=== PATIENT | male | born 1945 | race Caucasian/White ===

== ENCOUNTER → 2017-04-12 08:50 | Outpatient (CLI) | payer SELFPAY ==
[2017-04-12 10:36] LABS: AST(SGOT) 19 U/L (15-37); Alanine Aminotransfer ALT/SGPT 27 U/L (16-61); Albumin, Serum 3.7 g/dL (3.2-5.0); Alkaline Phosphatase 44 U/L (45-117); Bilirubin, Direct 0.36 mg/dL (0.00-0.30); Cholesterol 123 mg/dL (200); Globulin 3.1 g/dL (2.2-4.2); High Density Lipoprotein 35 mg/dL; Protein, Total 6.8 g/dL (6.4-8.2); Triglycerides 134 mg/dL; Very Low Density Lipoprotein 27 mg/dL (5-40)
[2017-04-12 10:41] LABS: PSA,Total - Annual Screen < 0.01 ng/mL (0.00-4.00)
== END ==
PROVIDERS: Family Provider Family Medicine; PCP Family Medicine; Visit Provider Internal Medicine Cardiovascular Disease
DX: Z12.5 Encounter for screening for malignant neoplasm of prostate (principal); E78.5 Hyperlipidemia, unspecified
CPT/HCPCS: 36415; 80061; 80076; 84153; G0103

== ENCOUNTER → 2017-05-16 19:08 | Outpatient (CLI) | payer SELFPAY ==
--- NOTE | 2017-05-16 | COLBX_PTH ---
PATIENT: RONEY COTTON LOC: [facility] U#:[id number] AGE/SX: 79/M ROOM: RE05/16/[address]: Dr. Brandon Parsons MD : 1945 BED: DIS: SPEC #: [id number] RECD: 05/16/17 15:32 STATUS: SUSI PHILLIPSAdam #: [id number] JEFF: 05/16/17 00:[address]: Brandon Parsons DEPT: SURGICAL PATHOLOGY RECD BY: Germain Bess ENTERED: 05/17/17 10:42 SP TYPE: COLON BX OTHR DR: Dr. Maria Eugenia Rachel MD [facility] Tissues: A - Ascending colon B - COLON BIOPSY Procedures: Surgery Specimen Level IV HEADER OPERATION: Colonoscopy with polypectomy PRE-OP DIAGNOSIS: History of polyps TISSUE SUBMITTED: A. Proximal ascending colon polyp, rule out adenoma, B. Hepatic flexure polyp, rule out adenoma MICROSCOPIC DIAGNOSIS A. Proximal ascending colon polyp, biopsy: Fragments of tubular adenoma. B. Colonic polyp at hepatic flexure, biopsy: Rare benign glandular cells. Fecal debris. AM:eris 05/18/17 COMMENT B. The specimen primarily consists of fecal material. Clinical correlation is suggested. MICROSCOPIC DESCRIPTION Slides are reviewed. GROSS DESCRIPTION A - Received in fixative is one container labeled with the patient's name and designated proximal ascending colon polyp. The specimen consists of multiple irregular fragments of light pugh soft tissue that in aggregate measure 1.5 x 0.3 x 0.1 cm. The specimen is totally submitted in one cassette. B - Received in fixative is one container labeled with the patient's name and designated hepatic flexure polyp. The specimen consists of multiple irregular fragments of light pugh soft tissue mixed with fecal material that in aggregate measure 2.5 x 0.2 x 0.1 cm. The specimen predominantly consists of fecal material. The specimen is totally submitted in one cassette. / SJ:eris 05/17/17 TC:5 CPT: 52665 x2
== END ==
PROVIDERS: Family Provider Family Medicine; PCP Family Medicine; Visit Provider Internal Medicine Gastroenterology
DX: Z86.010 Personal history of colon polyps (principal)
CPT/HCPCS: 88305

== ENCOUNTER → 2018-01-02 07:47 | Outpatient (CLI) | payer SELFPAY ==
--- NOTE | 2018-01-02 07:52 | CDU_ITS ---
Reason For Study: CAROTID ARTERY STENOSIS Rt. Velocities/BP Lt. Velocities/BP Prox CCA 116/21 cm/sec. Prox CCA 154/35 cm/sec. Mid CCA 128/31 cm/sec. Mid CCA 135/27 cm/sec. Dist CCA 109/28 cm/sec. Dist CCA 109/28 cm/sec. Prox ICA 49/0 cm/sec. Prox ICA 128/34 cm/sec. Mid ICA 130/39 cm/sec. Mid ICA 108/41 cm/sec. Dist ICA 90/31 cm/sec. Dist ICA 154/53 cm/sec. Rt. ICA/CCA = 1.02. Lt. ICA/CCA = 1.14. Prox ECA 141/17 cm/sec. Prox ECA 128/15 cm/sec. Rt. Vert. 46/17 cm/sec. Lt. Vert. 44/14 cm/sec. Right Extracranial There is homogeneous, smooth atherosclerotic plaque noted in the right common carotid artery. There is homogeneous, smooth atherosclerotic plaque noted in the right internal carotid artery. There is heterogeneous, smooth atherosclerotic plaque noted in the right external carotid artery. Antegrade flow is noted in the right vertebral artery. Left Extracranial There is homogeneous, smooth atherosclerotic plaque noted in the left common carotid artery. There is heterogeneous, irregular atherosclerotic plaque noted in the left internal carotid artery. There is homogeneous, smooth atherosclerotic plaque noted in the left external carotid artery. Antegrade flow is noted in the left vertebral artery. Procedure Carotid Duplex [id number]. Exam performed in department. Interpretation Summary Moderate (50-69%) stenosis right extracranial internal carotid. Moderate (50-69%) stenosis left extracranial internal carotid. Flow within the vertebral arteries is antegrade bilaterally. Ordering Physician: Kimani Montes Referring Physician: SATISH DIAZ Performed By: Susie Littlejohn, CLARY, RVT
== END ==
PROVIDERS: Family Provider Family Medicine; PCP Family Medicine; Referring Provider Surgery Vascular Surgery; Visit Provider Surgery Vascular Surgery
DX: I65.21 Occlusion and stenosis of right carotid artery (principal); I82.402 Acute embolism and thrombosis of unspecified deep veins of left lower extremity; E78.00 Pure hypercholesterolemia, unspecified; K92.2 Gastrointestinal hemorrhage, unspecified; R09.89 Other specified symptoms and signs involving the circulatory and respiratory systems
CPT/HCPCS: 93880

== ENCOUNTER → 2018-04-04 09:14 | Outpatient (CLI) | payer SELFPAY ==
[2018-04-04 10:26] LABS: AST(SGOT) 18 U/L (15-37); Alanine Aminotransfer ALT/SGPT 27 U/L (16-61); Albumin, Serum 3.7 g/dL (3.2-5.0); Alkaline Phosphatase 50 U/L (45-117); Bilirubin, Direct 0.29 mg/dL (0.00-0.30); Cholesterol 152 mg/dL (200); Globulin 3.3 g/dL (2.2-4.2); High Density Lipoprotein 34 mg/dL; Triglycerides 159 mg/dL; Very Low Density Lipoprotein 32 mg/dL (5-40)
== END ==
PROVIDERS: Family Provider Family Medicine; PCP Family Medicine; Referring Provider Internal Medicine Cardiovascular Disease; Visit Provider Internal Medicine Cardiovascular Disease
DX: E78.5 Hyperlipidemia, unspecified (principal); Z79.899 Other long term (current) drug therapy
CPT/HCPCS: 36415; 80061; 80076

== ENCOUNTER → 2018-11-29 11:43 | Outpatient (CLI) | payer SELFPAY ==
[2018-11-06 09:48] VITALS: BMI 29.9
[2018-11-29 14:19] LABS: AST(SGOT) 14 U/L (15-37); Alanine Aminotransfer ALT/SGPT 26 U/L (16-61); Albumin, Serum 3.8 g/dL (3.2-5.0); Alkaline Phosphatase 53 U/L (45-117); Bilirubin, Direct 0.37 mg/dL (0.00-0.30); Cholesterol 158 mg/dL (200); Globulin 3.1 g/dL (2.2-4.2); High Density Lipoprotein 36 mg/dL; Protein, Total 6.9 g/dL (6.4-8.2); Triglycerides 140 mg/dL; Very Low Density Lipoprotein 28 mg/dL (5-40)
== END ==
PROVIDERS: Family Provider Family Medicine; PCP Family Medicine; Referring Provider Family Medicine; Visit Provider Physician Assistant Medical
DX: E78.5 Hyperlipidemia, unspecified (principal)
CPT/HCPCS: 36415; 80061; 80076

== ENCOUNTER → 2019-06-26 10:54 | Outpatient (CLI) | payer SELFPAY ==
[2019-06-12 15:43] VITALS: BMI 29.5
[2019-06-26 12:33] LABS: Absolute Lymphocyte Count 1.48 X10^3/uL (0.83-4.51); Absolute Neutrophil Count 3.8 X10^3/uL (2.0-7.7); Basophil# 0.03 X10^3/uL; Basophil% 0.5 % (0-1); Eosinophil# 0.21 X10^3/uL; Eosinophils% 3.5 % (0-5); Hematocrit 48.7 % (40-54); Hemoglobin 15.8 g/dL (13.0-16.5); Lymphocyte # 1.48 X10^3/ul (4.0); Lymphocyte % 24.3 % (19-41); Mean Corp Hgb Conc 32.4 g/dL (32-36); Mean Corpuscular Hgb 31.5 pg (27.0-32.0); Mean Platelet Vol. 9.5 fl (6.2-12.0); Monocyte# 0.54 X10^3/uL; Monocyte% 8.9 % (0-10); NRBC Flagged by Analyzer 0.3 % (0-5); Neutrophil % 62.5 % (47-70); Platelet Count 127 K/mm3 (150-450); RBC Distribution Width SD 50.1 fl (35.1-43.9); Red Blood Count 5.02 M/mm3 (4.6-6.2); White Blood Count 6.1 K/mm3 (4.4-11.0)
[2019-06-26 13:11] LABS: Ferritin 85 ng/mL (26-388); Iron 67 ug/dL (65-175)
[2019-06-26 13:18] LABS: AST(SGOT) 14 U/L (15-37); Alanine Aminotransfer ALT/SGPT 23 U/L (16-61); Albumin, Serum 3.7 g/dL (3.2-5.0); Alkaline Phosphatase 54 U/L (45-117); Bilirubin, Direct 0.32 mg/dL (0.00-0.30); Cholesterol 117 mg/dL (200); Globulin 2.8 g/dL (2.2-4.2); High Density Lipoprotein 36 mg/dL; Protein, Total 6.5 g/dL (6.4-8.2); Triglycerides 129 mg/dL; Very Low Density Lipoprotein 26 mg/dL (5-40)
== END ==
PROVIDERS: Internal Medicine Cardiovascular Disease; PCP Family Medicine; Visit Provider Family Medicine
DX: D75.0 Familial erythrocytosis (principal); E78.00 Pure hypercholesterolemia, unspecified
CPT/HCPCS: 36415; 80061; 80076; 82728; 83540; 85025

== ENCOUNTER → 2020-03-11 08:48 | Outpatient (CLI) | payer SELFPAY ==
[2019-06-12 15:43] VITALS: BMI 29.5
--- NOTE | 2020-03-11 08:56 | CDU_ITS ---
Reason For Study: Carotid stenosis Rt. Velocities/BP Lt. Velocities/BP Prox CCA 111.2/17.3 cm/sec. Prox CCA 124.7/22.5 cm/sec. Mid CCA 141.2/24.3 cm/sec. Mid CCA 133.9/17 cm/sec. Dist CCA 130.2/18.8 cm/sec. Dist CCA 106.5/18.8 cm/sec. Prox ICA 80.9/15.2 cm/sec. Prox ICA 128.4/24.3 cm/sec. Mid ICA 128.4/29.8 cm/sec. Mid ICA 86.4/24.3 cm/sec. Dist ICA 119.3/33.4 cm/sec. Dist ICA 113.8/26.1 cm/sec. Rt. ICA/CCA = 0.99. Lt. ICA/CCA = 1.03. Prox ECA 126.6/4.2 cm/sec. Prox ECA 141.2/7.9 cm/sec. Rt. Vert. 59.7/16.8 cm/sec. Lt. Vert. 39/8.8 cm/sec. Right Extracranial There is homogeneous, smooth atherosclerotic plaque noted in the right common carotid artery. There is heterogeneous, irregular atherosclerotic plaque noted in the right internal carotid artery. There is homogeneous, smooth atherosclerotic plaque noted in the right external carotid artery. Antegrade flow is noted in the right vertebral artery. Left Extracranial There is homogeneous, smooth atherosclerotic plaque noted in the left common carotid artery. There is heterogeneous, irregular atherosclerotic plaque noted in the left internal carotid artery. There is homogeneous, smooth atherosclerotic plaque noted in the left external carotid artery. Antegrade flow is noted in the left vertebral artery. Procedure Carotid Duplex 49742. This is a Carotid Duplex examination using B-mode, color flow and specral Doppler. Exam performed in department. Interpretation Summary Moderate (50-69%) stenosis right extracranial internal carotid. Mild (<50%) stenosis left extracranial internal carotid. Flow within the vertebral arteries is antegrade bilaterally. Ordering Physician: Kimani Montes Referring Physician: Maria Eugenia Rachel M.D. Performed By: Hollie Trinidad RVT
== END ==
PROVIDERS: PCP Family Medicine; Referring Provider Surgery Vascular Surgery; Visit Provider Surgery Vascular Surgery
DX: I65.23 Occlusion and stenosis of bilateral carotid arteries (principal)
CPT/HCPCS: 93880

== ENCOUNTER → 2020-10-24 10:32 | Outpatient (CLI) | payer SELFPAY ==
[2020-10-24 11:55] LABS: AST(SGOT) 16 U/L (15-37); Alanine Aminotransfer ALT/SGPT 29 U/L (16-61); Albumin, Serum 3.7 g/dL (3.2-5.0); Alkaline Phosphatase 47 U/L (45-117); Bilirubin, Direct 0.35 mg/dL (0.00-0.30); Cholesterol 122 mg/dL (200); Globulin 3.4 g/dL (2.2-4.2); High Density Lipoprotein 38 mg/dL; Protein, Total 7.1 g/dL (6.4-8.2); Triglycerides 120 mg/dL; Very Low Density Lipoprotein 24 mg/dL (5-40)
== END ==
PROVIDERS: PCP Family Medicine; Referring Provider Internal Medicine Cardiovascular Disease; Visit Provider Internal Medicine Cardiovascular Disease
DX: E78.00 Pure hypercholesterolemia, unspecified (principal)
CPT/HCPCS: 36415; 80061; 80076

== ENCOUNTER → 2021-02-06 09:10 | Outpatient (CLI) | payer SELFPAY ==
--- NOTE | 2021-02-06 09:17 | RAD_ITS ---
EXAM: XR RIGHT RIBS, 2 VIEWS CLINICAL INDICATION: RIB PAIN, RIGHT SIDE TECHNIQUE: Frontal and oblique views of the right ribs. This report was created using EchoFirst report generation technology. COMPARISON: None. FINDINGS: LUNGS AND PLEURAL SPACES: See below. BONES/JOINTS: There is an acute fracture of the right lateral 8th rib. There is no pneumothorax. No sclerotic or destructive changes observed. SOFT TISSUES: Unremarkable. No soft tissue swelling or gas. RAD/Ribs Unil 2V No CXR IMPRESSION: There is an acute fracture of the right lateral 8th rib. There is no pneumothorax. Electronically Signed: Azar Pablo MD at 16:51 EST , Service support ,
--- NOTE | 2021-02-06 09:20 | RAD_ITS ---
STUDY: XR Chest 2 Views 02/06/2021 9:21 AM REASON FOR EXAM: Male, 75 years old. CHEST PAIN RIB PAIN ON RIGHT SIDE COMPARISON: None TECHNIQUE: XR Chest 2 Views FINDINGS: There is no demonstrated pleural abnormality. Normal heart size. Normal mediastinum. Normal cecelia. Prominent appearing increased interstitial lung markings. Normal visualized pulmonary arteries. There is atherosclerotic calcification of the aortic arch with tortuosity. There are diffuse degenerative changes of the visualized thoracic spine. There is degenerative osteoarthritis of the bilateral shoulders. There is an acute fracture of the right lateral 8th rib. There is no demonstrated abnormality of the visualized soft tissue structures of the upper abdomen. RAD/Chest PA and Lateral IMPRESSION: There is an acute fracture of the right lateral 8th rib. Electronically Signed: Azar Pablo MD at 16:51 EST , Service support ,
== END ==
LOC: MTLAB 09:10 → MTRAD 09:11
PROVIDERS: PCP Family Medicine; Referring Provider Family Medicine; Visit Provider Family Medicine
DX: R07.81 Pleurodynia (principal)
CPT/HCPCS: 71046; 71100

== ENCOUNTER → 2021-10-06 | Outpatient (CLI) | payer SELFPAY ==
[2021-10-06 12:48] LABS: Erythrocyte Sedimentation Rate 7 mm/hr (0-20)
[2021-10-06 12:50] LABS: Absolute Lymphocyte Count 1.48 X10^3/uL (0.83-4.51); Absolute Neutrophil Count 5.4 X10^3/uL (2.0-7.7); Basophil# 0.04 X10^3/uL; Basophil% 0.5 % (0-1); Eosinophil# 0.28 X10^3/uL; Eosinophils% 3.5 % (0-5); Hematocrit 48.2 % (40-54); Hemoglobin 16.2 g/dL (13.0-16.5); Lymphocyte # 1.48 X10^3/ul (0.83-4.51); Lymphocyte % 18.7 % (19-41); Mean Corp Hgb Conc 33.6 g/dL (32-36); Mean Corpuscular Hgb 32.8 pg (27.0-32.0); Mean Corpuscular Volume 97.6 fL (80-94); Mean Platelet Vol. 9.5 fl (6.2-12.0); Monocyte# 0.67 X10^3/uL; Monocyte% 8.5 % (0-10); NRBC Flagged by Analyzer 0 % (0-5); Neutrophil % 68.3 % (47-70); Platelet Count 159 K/mm3 (150-450); RBC Distribution Width CV 13.8 % (11.6-14.6); Red Blood Count 4.94 M/mm3 (4.6-6.2); White Blood Count 7.9 K/mm3 (4.4-11.0)
[2021-10-06 13:05] LABS: AST(SGOT) 15 U/L (15-37); Alanine Aminotransfer ALT/SGPT 25 U/L (16-61); Albumin, Serum 3.5 g/dL (3.2-5.0); Alkaline Phosphatase 52 U/L (45-117); Anion Gap 6 (5-15); BUN 32 mg/dL (7-18); BUN/Creat Ratio 17.1 RATIO (10-20); CRP < 2.90 mg/L (0.0-3.0); Calcium,Total 8.8 mg/dL (8.5-10.1); Chloride 108 mmol/L (98-107); Creatinine, Serum 1.87 mg/dL (0.70-1.30); EST Glomerular Filtration Rate 37 mL/min (>60); Est Glom Filt Rate - Afr Amer 45 mL/min (>60); Globulin 3.5 g/dL (2.2-4.2); Glucose 84 mg/dL (74-106); Potassium 4.9 mmol/L (3.5-5.1); Sodium Level 139 mmol/L (136-145); Uric Acid 7.8 mg/dL (3.5-7.2)
== END | disposition home or self-care (01) ==
PROVIDERS: PCP Family Medicine; Referring Provider Podiatrist; Visit Provider Podiatrist
DX: L03.90 Cellulitis, unspecified (principal); M10.9 Gout, unspecified
CPT/HCPCS: 36415; 80053; 84550; 85025; 85652; 86140

== ENCOUNTER → 2022-10-22 | Outpatient (CLI) | payer SELFPAY ==
[2022-10-22 15:37] LABS: AST(SGOT) 17 U/L (15-37); Alanine Aminotransfer ALT/SGPT 25 U/L (16-61); CPK Total, Creatine Kinase 178 U/L (39-308); Cholesterol 117 mg/dL (200); High Density Lipoprotein 39 mg/dL; Triglycerides 95 mg/dL; Very Low Density Lipoprotein 19 mg/dL (5-40)
== END | disposition home or self-care (01) ==
LOC: MTLAB 11:37
PROVIDERS: PCP Family Medicine; Referring Provider Internal Medicine Cardiovascular Disease; Visit Provider Internal Medicine Cardiovascular Disease
DX: R42 Dizziness and giddiness (principal); I77.9 Disorder of arteries and arterioles, unspecified; E78.5 Hyperlipidemia, unspecified; I25.10 Atherosclerotic heart disease of native coronary artery without angina pectoris
CPT/HCPCS: 36415; 80061; 82550; 84450; 84460

== ENCOUNTER 2022-10-30 11:01 | Emergency (ER) | payer OTHER, SELFPAY ==
[2022-10-30] VITALS (46 sets, daily range): BP systolic 74–141; BP diastolic 51–76; PULSE 67–89; RESP 13–25; TEMP 35.5; O2SAT 95–100; BMI 30.7
--- NOTE | 2022-10-30 12:09 | EX.ED.DYSGE1 ---
HPI History of Present Illness Chief Complaint: GI Bleed Informant: patient and spouse/S.O. Narrative Narrative: 76-year-old male presenting to the emergency department with lower GI bleeding. Patient states he has a history of the same several years ago underwent what sounds like embolization in [place]. He underwent coronary artery stenting in 2016 and is maintained on Plavix and aspirin. He was seen Dr. العراقي locally for cardiology. He states that yesterday he felt fine. Around 0930 this morning he had an episode of bright red blood per rectum. This happened again at approximately 1100 hrs. He denies any syncope. No chest pain shortness of breath. No abdominal or rectal pain. He has not been experiencing any significant cramping. 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 Osteoarthritis of right knee Patellofemoral syndrome, right Peripheral vascular disease Presence of stent in coronary artery (~10/01/15) Pure hypercholesterolemia Home Medications aspirin 81 mg tablet,delayed release 81 mg PO DAILY 11/07/15 [History Last Taken Unknown] nitroglycerin 0.4 mg sublingual tablet 0.4 mg sublingual Q5M PRN Chest Pain 11/07/15 [History Last Taken Unknown] lisinopril 10 mg tablet 10 mg PO QDAY #90 tabs 08/16/22 [Rx Last Taken Unknown] metoprolol succinate 100 mg tablet,extended release 24 hr 100 mg PO QDAY #90 tabs 08/16/22 [Rx Last Taken Unknown] pravastatin 80 mg tablet 80 mg PO QHS #90 tabs 08/16/22 [Rx Last Taken Unknown] clopidogrel 75 mg tablet 75 mg PO DAILY 10/12/22 [History Last Taken Unknown] Allergy/AdvReac Type Severity Reaction Status Date / Time No Known Allergies Allergy Verified 10/30/22 11:02 Family History Father CAD (coronary artery disease) Mother CAD (coronary artery disease) Hx CHF Sister Hypertension High cholesterol Surgical History History of colonoscopy History of surgery of liver Hx of prostatectomy Presence of coronary angioplasty implant and graft (~10/01/15) Social History Smoking Status: Never smoker alcohol intake: never substance use type: does not use caffeine: Yes Type: coffee what type of physical activity do you participate in: none seatbelt use: always do you feel safe at home: Yes ROS ROS ED Constitutional Constitutional ED: Denies chills or weight loss Eyes Eyes: Denies change in vision or diplopia ENT ENT ED: Denies ear pain, rhinorrhea or sore throat Cardiovascular Cardiovascular: Denies chest pain, orthopnea, palpitations or racing heartbeat Respiratory/Chest Respiratory/Chest: Denies cough, dyspnea or orthopnea Gastrointestinal Gastrointestinal: Denies abdominal pain, diarrhea, nausea or vomiting Genitourinary Genitourinary ED: Reports other Details: Bright red blood per rectum x2 today ; Denies dysuria, hematuria or urinary frequency Musculoskeletal Musculoskeletal: Denies arthralgias or myalgias Integumentary Denies abscess or rash Neurologic Neurologic: Denies headache(s) or weakness Psychiatric Psychiatric: Denies anxiety, depression, suicidal ideation or suicidal thoughts Endocrine Endocrinology: Denies polydipsia, polyphagia or polyuria Allergic/Immunologic Allergic/Immunologic ED: Denies mouth swelling, tongue swelling or urticaria EXAM Physical Exam Const Vital Signs: 10/30/22 11:02 10/30/22 12:58 10/30/22 17:00 Temperature 95.9 F L Temperature Source Temporal Pulse Rate 89 88 Pulse Rate [Lying] 71 Pulse Rate [Sitting (for 1 minute prior to obtaining)] 74 Pulse Rate [Standing (for 1 minute prior to obtaining)] 76 Respiratory Rate 18 16 Blood Pressure 121/66 H 104/55 L Blood Pressure [Lying] 125/68 H Blood Pressure [Sitting (for 1 minute prior to obtaining)] 141/74 H Blood Pressure [Standing (for 1 minute prior to obtaining)] 134/71 H Blood Pressure Mean 84 71 Blood Pressure Mean [Lying] 87 Blood Pressure Mean [Sitting (for 1 minute prior to obtaining)] 96 Blood Pressure Mean [Standing (for 1 minute prior to obtaining)] 92 Pulse Ox 98 100 Oxygen Delivery Method Room Air Room Air 10/30/22 18:15 10/30/22 20:00 10/30/22 18:00 Temperature Temperature Source Pulse Rate 71 70 Pulse Rate [Lying] Pulse Rate [Sitting (for 1 minute prior to obtaining)] Pulse Rate [Standing (for 1 minute prior to obtaining)] Respiratory Rate 15 16 Blood Pressure 139/71 H 91/60 111/76 Blood Pressure [Lying] Blood Pressure [Sitting (for 1 minute prior to obtaining)] Blood Pressure [Standing (for 1 minute prior to obtaining)] Blood Pressure Mean 93 70 86 Blood Pressure Mean [Lying] Blood Pressure Mean [Sitting (for 1 minute prior to obtaining)] Blood Pressure Mean [Standing (for 1 minute prior to obtaining)] Pulse Ox 100 95 Oxygen Delivery Method Room Air Room Air 10/30/22 18:15 10/30/22 18:41 10/30/22 18:45 Temperature Temperature Source Pulse Rate 70 Pulse Rate [Lying] Pulse Rate [Sitting (for 1 minute prior to obtaining)] Pulse Rate [Standing (for 1 minute prior to obtaining)] Respiratory Rate 20 H Blood Pressure 139/71 H 117/67 122/70 H Blood Pressure [Lying] Blood Pressure [Sitting (for 1 minute prior to obtaining)] Blood Pressure [Standing (for 1 minute prior to obtaining)] Blood Pressure Mean 90 82 87 Blood Pressure Mean [Lying] Blood Pressure Mean [Sitting (for 1 minute prior to obtaining)] Blood Pressure Mean [Standing (for 1 minute prior to obtaining)] Pulse Ox 98 Oxygen Delivery Method 10/30/22 18:50 10/30/22 19:00 10/30/22 19:10 Temperature Temperature Source Pulse Rate 71 68 68 Pulse Rate [Lying] Pulse Rate [Sitting (for 1 minute prior to obtaining)] Pulse Rate [Standing (for 1 minute prior to obtaining)] Respiratory Rate 15 16 20 H Blood Pressure 108/67 Blood Pressure [Lying] Blood Pressure [Sitting (for 1 minute prior to obtaining)] Blood Pressure [Standing (for 1 minute prior to obtaining)] Blood Pressure Mean 81 Blood Pressure Mean [Lying] Blood Pressure Mean [Sitting (for 1 minute prior to obtaining)] Blood Pressure Mean [Standing (for 1 minute prior to obtaining)] Pulse Ox 97 96 96 Oxygen Delivery Method 10/30/22 19:15 10/30/22 19:20 10/30/22 19:30 Temperature Temperature Source Pulse Rate 67 70 72 Pulse Rate [Lying] Pulse Rate [Sitting (for 1 minute prior to obtaining)] Pulse Rate [Standing (for 1 minute prior to obtaining)] Respiratory Rate 25 H 23 H 14 Blood Pressure 121/66 H 112/65 Blood Pressure [Lying] Blood Pressure [Sitting (for 1 minute prior to obtaining)] Blood Pressure [Standing (for 1 minute prior to obtaining)] Blood Pressure Mean 82 79 Blood Pressure Mean [Lying] Blood Pressure Mean [Sitting (for 1 minute prior to obtaining)] Blood Pressure Mean [Standing (for 1 minute prior to obtaining)] Pulse Ox 98 98 97 Oxygen Delivery Method 10/30/22 19:40 10/30/22 19:46 10/30/22 19:50 Temperature Temperature Source Pulse Rate 73 72 Pulse Rate [Lying] Pulse Rate [Sitting (for 1 minute prior to obtaining)] Pulse Rate [Standing (for 1 minute prior to obtaining)] Respiratory Rate 17 23 H Blood Pressure 124/66 H Blood Pressure [Lying] Blood Pressure [Sitting (for 1 minute prior to obtaining)] Blood Pressure [Standing (for 1 minute prior to obtaining)] Blood Pressure Mean 83 Blood Pressure Mean [Lying] Blood Pressure Mean [Sitting (for 1 minute prior to obtaining)] Blood Pressure Mean [Standing (for 1 minute prior to obtaining)] Pulse Ox 98 98 Oxygen Delivery Method 10/30/22 20:57 10/30/22 21:00 10/30/22 21:10 Temperature Temperature Source Pulse Rate 70 73 71 Pulse Rate [Lying] Pulse Rate [Sitting (for 1 minute prior to obtaining)] Pulse Rate [Standing (for 1 minute prior to obtaining)] Respiratory Rate 20 H 16 16 Blood Pressure 91/60 110/70 Blood Pressure [Lying] Blood Pressure [Sitting (for 1 minute prior to obtaining)] Blood Pressure [Standing (for 1 minute prior to obtaining)] Blood Pressure Mean 71 83 Blood Pressure Mean [Lying] Blood Pressure Mean [Sitting (for 1 minute prior to obtaining)] Blood Pressure Mean [Standing (for 1 minute prior to obtaining)] Pulse Ox 95 96 Oxygen Delivery Method 10/30/22 21:15 10/30/22 21:20 10/30/22 21:30 Temperature Temperature Source Pulse Rate 71 68 71 Pulse Rate [Lying] Pulse Rate [Sitting (for 1 minute prior to obtaining)] Pulse Rate [Standing (for 1 minute prior to obtaining)] Respiratory Rate 19 H 23 H 21 H Blood Pressure 108/61 74/58 L Blood Pressure [Lying] Blood Pressure [Sitting (for 1 minute prior to obtaining)] Blood Pressure [Standing (for 1 minute prior to obtaining)] Blood Pressure Mean 74 65 Blood Pressure Mean [Lying] Blood Pressure Mean [Sitting (for 1 minute prior to obtaining)] Blood Pressure Mean [Standing (for 1 minute prior to obtaining)] Pulse Ox 97 97 100 Oxygen Delivery Method 10/30/22 21:40 10/30/22 21:41 10/30/22 21:45 Temperature Temperature Source Pulse Rate 70 69 68 Pulse Rate [Lying] Pulse Rate [Sitting (for 1 minute prior to obtaining)] Pulse Rate [Standing (for 1 minute prior to obtaining)] Respiratory Rate 19 H 24 H 16 Blood Pressure 93/60 91/56 L Blood Pressure [Lying] Blood Pressure [Sitting (for 1 minute prior to obtaining)] Blood Pressure [Standing (for 1 minute prior to obtaining)] Blood Pressure Mean 70 68 Blood Pressure Mean [Lying] Blood Pressure Mean [Sitting (for 1 minute prior to obtaining)] Blood Pressure Mean [Standing (for 1 minute prior to obtaining)] Pulse Ox 99 98 98 Oxygen Delivery Method 10/30/22 21:50 10/30/22 22:00 10/30/22 22:10 Temperature Temperature Source Pulse Rate 71 68 69 Pulse Rate [Lying] Pulse Rate [Sitting (for 1 minute prior to obtaining)] Pulse Rate [Standing (for 1 minute prior to obtaining)] Respiratory Rate 14 15 13 Blood Pressure 101/59 L Blood Pressure [Lying] Blood Pressure [Sitting (for 1 minute prior to obtaining)] Blood Pressure [Standing (for 1 minute prior to obtaining)] Blood Pressure Mean 72 Blood Pressure Mean [Lying] Blood Pressure Mean [Sitting (for 1 minute prior to obtaining)] Blood Pressure Mean [Standing (for 1 minute prior to obtaining)] Pulse Ox 98 100 100 Oxygen Delivery Method Room Air 10/30/22 22:15 10/30/22 22:19 10/30/22 22:20 Temperature Temperature Source Pulse Rate 68 77 76 Pulse Rate [Lying] Pulse Rate [Sitting (for 1 minute prior to obtaining)] Pulse Rate [Standing (for 1 minute prior to obtaining)] Respiratory Rate 17 25 H 21 H Blood Pressure 81/62 L 91/64 Blood Pressure [Lying] Blood Pressure [Sitting (for 1 minute prior to obtaining)] Blood Pressure [Standing (for 1 minute prior to obtaining)] Blood Pressure Mean 70 73 Blood Pressure Mean [Lying] Blood Pressure Mean [Sitting (for 1 minute prior to obtaining)] Blood Pressure Mean [Standing (for 1 minute prior to obtaining)] Pulse Ox 100 100 Oxygen Delivery Method Room Air Positive well nourished and well developed General Appearance ED: well developed HEENT Reports normocephalic, head/scalp atraumatic and moist mucous membranes Eyes PERRL and EOMs intact bilaterally Neck no lymphadenopathy, supple and no JVD Resp normal respiratory effort and clear to auscultation bilaterally Cardio regular rate, regular rhythm and no murmurs GI normal to inspection, nondistended, normoactive bowel sounds and non-tender Palpation: soft Narrative: There is clotted blood around and in the anus. There is no stool in the rectal vault. Back/Spine no CVA tenderness and normal ROM Extremity normal to inspection General Extremety ED: Negative for edema General Extremity: Negative for edema Neuro oriented x3 and CN's II-XII intact bilaterally Sensorium / Orientation: alert Motor Exam: strength 5/5 throughout Psych mental status grossly normal Mood & Affect: Negative for depressed or tearful Skin no rashes or lesions noted and no wounds MDM MDM MDM Narrative Medical decision making narrative: Patient is initial hemoglobin is 16.0. BUN 27 creatinine 1.86. Lactic acid is normal. Patient had 2 bloody bowel movements here seem to have more clots. Orthostatic lovelace he is asymptomatic. I repeated his hemoglobin level about 4 hours after his arrival and his hemoglobin 14.6. I spoke with gastroenterology and we will plan on admitting. I spoke with the hospitalist who evaluated the patient. Hospitalist ordered a CTA that showed active bleeding at the hepatic flexure. She then spoke with family and they are requesting transfer to tertiary care facility where he was at before. I once again spoke with gastroenterology and then because he is still in the emergency department I spoke with the transfer line and we are currently awaiting acceptance. He remains hemodynamically stable. I do not believe he needs a transfusion at the current moment. Nursing informed me that they obtained a hypotensive blood pressure reading. They readjusted the cuff and did a manual and it was normal tensive around 110 and 108 systolic. He is not tachycardic and he is mentating. We rechecked the hemoglobin again is 13.3. I have personally reviewed his blood pressure readings. Nursing has documented several readings where he appears to be hypotensive but when I go back and I recycle the cough we are normal tensive. I do not believe he is in a state of shock at the current time or in need of a transfusion. He is receiving fluids. We will continue to monitor. As of 2230 hours the care of the patient will be transferred to the night physician. We are still awaiting bed assignment at [facility] Lab Data Attestation: I reviewed the patient's lab results. Labs: Laboratory Results - last 24 hr 10/30/22 10/30/22 10/30/22 11:45 16:10 21:19 WBC 6.5 RBC 4.97 Hgb 16.0 14.6 13.3 Hct 48.5 44.2 40.7 MCV 97.6 H MCH 32.2 H MCHC 33.0 RDW Std Deviation 49.0 H RDW Coeff of Elly 13.6 Plt Count 130 L MPV 9.0 Immature Gran % (Auto) 0.300 Neut % (Auto) 62.5 Lymph % (Auto) 24.9 Duchesne % (Auto) 6.3 Eos % (Auto) 5.4 H Baso % (Auto) 0.6 Absolute Neuts (auto) 4.0 Absolute Lymphs (auto) 1.61 Nucleated RBC % 0 PT 13.7 INR 1.0 APTT 29.7 Sodium 141 Potassium 4.4 Chloride 112 H Carbon Dioxide 24.0 Anion Gap 5 BUN 27 H Creatinine 1.86 H Estim Creat Clear Calc 35.42 Est GFR (MDRD) Af Amer 45 L Est GFR (MDRD) Non-Af 38 L BUN/Creatinine Ratio 14.5 Glucose 143 H Lactic Acid 1.5 Calcium 8.6 Radiography Diagnostic Testing: Clinical Impression(s) from Imaging Studies Abdomen/Pelvis CTA 10/30/22 18:18 IMPRESSION: Focal contrast in the dependent portion of the diverticulum and the hepatic flexure suggesting active diverticular bleed. Electronically Signed: Ramírez Cervantes MD ([place]) at 18:56 EDT , Discharge Plan Triage Chief Complaint: GI Bleed ED Provider: Emmett Sanchez Dx/Rx/DC Orders Clinical Impression: Gastrointestinal bleeding, lower Prescriptions: No Action clopidogrel 75 mg tablet 75 mg PO DAILY aspirin 81 MG tablet,delayed release (DR/EC) 81 mg PO DAILY nitroglycerin 0.4 MG tablet 0.4 mg SUBLINGUAL Q5M PRN (Reason: Chest Pain) pravastatin 80 mg tablet 80 mg PO QHS Qty: 90 3RF lisinopril 10 mg tablet 10 mg PO QDAY Qty: 90 3RF metoprolol succinate 100 mg tablet extended release 24 hr 100 mg PO QDAY Qty: 90 3RF Primary Care Provider: Maria Eugenia Rachel Referrals: Maria Eugenia Rachel MD [Primary Care Provider] - Disposition Disposition: Acute Care Hospital Discharge Location: [facility]
[2022-10-30 12:12] LABS: Absolute Lymphocyte Count 1.61 X10^3/uL (0.83-4.51); Basophil# 0.04 X10^3/uL; Basophil% 0.6 % (0-1); Eosinophil# 0.35 X10^3/uL; Eosinophils% 5.4 % (0-5); Hematocrit 48.5 % (40-54); Lymphocyte # 1.61 X10^3/ul (0.83-4.51); Lymphocyte % 24.9 % (19-41); Mean Corpuscular Hgb 32.2 pg (27.0-32.0); Mean Corpuscular Volume 97.6 fL (80-94); Monocyte# 0.41 X10^3/uL; Monocyte% 6.3 % (0-10); NRBC Flagged by Analyzer 0 % (0-5); Neutrophil # 4.04 X10^3/uL (2.7-7.7); Neutrophil % 62.5 % (47-70); Platelet Count 130 K/mm3 (150-450); RBC Distribution Width CV 13.6 % (11.6-14.6); Red Blood Count 4.97 M/mm3 (4.6-6.2); White Blood Count 6.5 K/mm3 (4.4-11.0)
[2022-10-30 12:23] LABS: Prothrombin Time (Protime)PT. 13.7 SECONDS (11.7-14.9)
[2022-10-30 12:24] LABS: Partial Thromboplast Time 29.7 Seconds (24.1-36.2)
[2022-10-30 12:26] LABS: Anion Gap 5 (5-15); BUN 27 mg/dL (7-18); BUN/Creat Ratio 14.5 RATIO (10-20); Calcium,Total 8.6 mg/dL (8.5-10.1); Chloride 112 mmol/L (98-107); Creatinine, Serum 1.86 mg/dL (0.70-1.30); EST Glomerular Filtration Rate 38 mL/min (>60); Est Glom Filt Rate - Afr Amer 45 mL/min (>60); Estimated Creatinine Clearance 35.42 ml/min; Glucose 143 mg/dL (74-106); Potassium 4.4 mmol/L (3.5-5.1); Sodium Level 141 mmol/L (136-145)
[2022-10-30 12:38] LABS: Lactic Acid 1.5 mmol/L (0.4-1.9)
[2022-10-30 16:16] LABS: Hematocrit 44.2 % (40-54); Hemoglobin 14.6 g/dL (13.0-16.5)
--- NOTE | 2022-10-30 17:51 | HP.PCM_ITS ---
[facility] - General General Date of Service: 10/30/22 Chief Complaint: rectal bleeding [facility] Narrative RONEY COTTON, is a 76 M with a PMH as outlined who presents via the ED on 10/30/2022 with a complaint of rectal bleeding. Rectal bleeding started on the morning of admission, at around 9:30am. He denied any abdominal pain, lightheadedness, dizziness, nausea, vomiting or any other symptoms. Rectal bleeding occured again a couple of hours later. He said he had similar symptoms in ~ 2014 after he had cardiac cath with stents. HE was transferred to [facility] then and had embolization of a rectal artery. He is on aspirin and plavix. He had no other complaints. Vitals in the ED were BP of 95.9F, BP of 125/68, RR of 18 and he was saturating at 98% on room air. CBC showed Hb of 14.6. wbc of 6.5 and platelets of 130. CHemistry showed sodium of 141, potassium of 4.4, Cr of 1.86. He is being admitted to be managed for rectal bleed. 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, lower extremity, distal, chronic Hyperlipidemia Knee pain alf use of drug Osteoarthritis of right knee Patellofemoral syndrome, right Peripheral vascular disease Presence of stent in coronary artery (~10/01/15) Pure hypercholesterolemia Home Medications aspirin 81 mg tablet,delayed release 81 mg PO DAILY 11/07/15 [History Last Taken Unknown] nitroglycerin 0.4 mg sublingual tablet 0.4 mg sublingual Q5M PRN Chest Pain 11/07/15 [History Last Taken Unknown] lisinopril 10 mg tablet 10 mg PO QDAY #90 tabs 08/16/22 [Rx Last Taken Unknown] metoprolol succinate 100 mg tablet,extended release 24 hr 100 mg PO QDAY #90 tabs 08/16/22 [Rx Last Taken Unknown] pravastatin 80 mg tablet 80 mg PO QHS #90 tabs 08/16/22 [Rx Last Taken Unknown] clopidogrel 75 mg tablet 75 mg PO DAILY 10/12/22 [History Last Taken Unknown] Allergy/AdvReac Type Severity Reaction Status Date / Time No Known Allergies Allergy Verified 10/30/22 11:02 Family History Father CAD (coronary artery disease) Mother CAD (coronary artery disease) Hx CHF Sister Hypertension High cholesterol Surgical History History of colonoscopy History of surgery of liver Hx of prostatectomy Presence of coronary angioplasty implant and graft (~10/01/15) Social History Smoking Status: Never smoker alcohol intake: never substance use type: does not use caffeine: Yes Type: coffee what type of physical activity do you participate in: none seatbelt use: always do you feel safe at home: Yes ROS Constitutional Constitutional: Denies anorexia, chills, fatigue, fever(s), malaise or weakness Eyes Eyes: Denies change in vision ENT HEENT: Denies dysphagia, headache(s), sore throat or throat swelling Cardiovascular Cardiovascular: Denies chest pain, edema, orthopnea, palpitations, paroxysmal nocturnal dyspnea or syncope Respiratory/Chest Respiratory/Chest: Denies cough, shortness of breath at rest or shortness of b reath with exertion Gastrointestinal Gastrointestinal: Reports hematochezia; Denies abdominal pain, diarrhea, dyspepsia, hematemesis, melena, nausea or vomiting Genitourinary Genitourinary: Denies dysuria, hematuria or nocturia Musculoskeletal Musculoskeletal: Denies back pain Neurologic Neurologic: Denies confusion, dizziness, headache(s), numbness or seizures Psychiatric Psychiatric: Denies anxiety or depression Vital Signs Vital Signs Vital Signs: 10/30/22 11:02 10/30/22 12:58 Temperature 95.9 F L Temperature Source Temporal Pulse Rate 89 Pulse Rate [Lying] 71 Pulse Rate [Sitting (for 1 minute prior to obtaining)] 74 Pulse Rate [Standing (for 1 minute prior to obtaining)] 76 Respiratory Rate 18 Blood Pressure 121/66 H Blood Pressure [Lying] 125/68 H Blood Pressure [Sitting (for 1 minute prior to obtaining)] 141/74 H Blood Pressure [Standing (for 1 minute prior to obtaining)] 134/71 H Blood Pressure Mean 84 Blood Pressure Mean [Lying] 87 Blood Pressure Mean [Sitting (for 1 minute prior to obtaining)] 96 Blood Pressure Mean [Standing (for 1 minute prior to obtaining)] 92 Pulse Ox 98 Oxygen Delivery Method Room Air Weight Weight: 220 lb 3.2 oz Body Mass Index (BMI) 30.7 Physical Exam Const alert, oriented x3 and no apparent distress General Appearance: cooperative HEENT normocephalic, head/scalp atraumatic, moist oral mucous membranes and oropharynx normal Eyes PERRL and EOMs intact bilaterally Neck no lymphadenopathy, supple and no JVD Lymph Lymphatic: no lymphadenopathy noted and no lymphedema noted Resp normal respiratory effort, normal air movement and clear to auscultation bilaterally Cardio regular rate, regular rhythm, S1 normal heart sound, S2 normal heart sound and no murmurs GI normal to inspection, nondistended, normoactive bowel sounds, soft to palpation, non-tender and non-distended Extremity normal capillary refill, no clubbing, cyanosis or edema and no calf tenderness Skin General Skin Exam: no breakdown and turgor normal Neuro CN's II-XII intact bilaterally, no focal motor deficits, no sensory deficits noted and deep tendon reflexes 2+ bilaterally Psych thought process normal, cooperative and affect normal Appearance: appropriate Results Lab / Micro Data 10/30/22 16:10 10/30/22 11:45 Labs: Laboratory Results - last 24 hr 10/30/22 11:45: WBC 6.5, RBC 4.97, Hgb 16.0, Hct 48.5, MCV 97.6 H, MCH 32.2 H, MCHC 33.0, RDW Std Deviation 49.0 H, RDW Coeff of Elly 13.6, Plt Count 130 L, MPV 9.0, Immature Gran % (Auto) 0.300, Neut % (Auto) 62.5, Lymph % (Auto) 24.9, [place] % (Auto) 6.3, Eos % (Auto) 5.4 H, Baso % (Auto) 0.6, Absolute Neuts (auto) 4.0, Absolute Lymphs (auto) 1.61, Nucleated RBC % 0, PT 13.7, INR 1.0, APTT 29.7, Sodium 141, Potassium 4.4, Chloride 112 H, Carbon Dioxide 24.0, Anion Gap 5, BUN 27 H, Creatinine 1.86 H, Estim Creat Clear Calc 35.42, Est GFR (MDRD) Af Amer 45 L, Est GFR (MDRD) Non-Af 38 L, BUN/Creatinine Ratio 14.5, Glucose 143 H, Lactic Acid 1.5, Calcium 8.6 10/30/22 16:10: Hgb 14.6, Hct 44.2 Assessment & Plan Assessment/Plan (1) Rectal bleeding: PLAN: Plan #Rectal bleeding * admit to [facility] * started having rectal bleeding earlier today and has had 5 episodes of josue bleeding per rectum. He didnt have any clots. * hb is 14.6, was 16.2 on admission, but had dropped to 14.6 on repeat * he previously presented with similar rectal bleeding back in 2016 and had to be transferred to [facility] as there was no GI coverage. He ended up having a rectal embolisation. * hold aspirin and plavix. * hydrate with IVF NS @ 150cc/hr * keep NPO * iV pantoprazole 40mg bid * consult gastroenterology * * #CAd s/p stents * says he had 4 stents inserted in 2016, about 8 months after he had a GI bleed * aspirin and plavix on hold * on statin, which is also on hold as she is nPO * #Hyperlipidemia: on statin #CKD 3B: Cr is 1.86. Baseline from 2018 is 1.87. Will monitor #Hypertension: on metoprolol and lisinopril. DVT prophylaxis: SCDs. Code status: full code * Patient and daughter counseled extensively about different types of CODE STATUS including full code, DNR CCA and DNR CCA. * Patient elects to be full code. * Total [id number] time 17 minutes. * * CTA abdomen and pelvis showed focal contrast in the dependent portion of the diverticulum in the hepatic flexure suggesting active diverticular bleed. I spoke to the patient, his and daughter were present extensively about the findings. I counseled them that diverticular bleeds often did stop on their own though sometimes they persist or he may need embolization or surgery. Since he moglobin was pretty stable at 14.5 though he had dropped from about 16 this morning, I explained to patient that he was not as sick as his previous case of rectal bleeding in 2016 where he required transfusions and also had syncope and was transferred to [facility] where he had embolization done. Patient, and daughter however states that because of his previous case where he required embolization, they would rather be in our facility where he can get that done if needed. They understand that he does not need that now but he said he would feel much more comfortable if it were to be that that was needed and he could be in a place where would be done emergently. They would therefore prefer to be transferred to a tertiary facility. Dr. Sanchez the ED doctor informed. Plan is therefore for transfer to tertiary facility by ED. Charges/Coding Visit Charges Inpatient E&M: 11116 Init Hosp L3 Office Visits / Consults: 61210 IP Consult L5 Procedures Hospitalists Procedures: 93592 Advncd Care Plan 30 Min
--- NOTE | 2022-10-30 18:18 | CT_ITS ---
EXAM: CT ANGIOGRAPHY ABDOMEN AND PELVIS WITHOUT AND WITH INTRAVENOUS CONTRAST CLINICAL INDICATION: GI bleed TECHNIQUE: Helically acquired angiography images were obtained of the abdomen and pelvis without and with intravenous contrast. This CT exam was performed using one or more of the following dose reduction techniques: automated exposure control, adjustment of the mA and/or kV according to patient size, and/or use of iterative reconstruction technique. MIP reconstructed images were created and reviewed. CONTRAST: IV 100mL Isovue-370 RADIATION DOSE: CTDIvol = 28.27 mGy, DLP = 1177.95 mGy-cm COMPARISON: No relevant prior studies available. FINDINGS: VASCULATURE: AORTA: Mild atherosclerosis of the abdominal aorta. Normal caliber abdominal aorta. No dissection. CELIAC TRUNK AND MESENTERIC ARTERIES: No acute findings. No occlusion or significant stenosis. No dissection. RENAL ARTERIES: No acute findings. No occlusion or significant stenosis. No dissection. ILIAC ARTERIES: Bilateral internal iliac artery atherosclerosis with or significant stenosis. Mild atherosclerosis of the left more than right common iliac arteries without hemodynamically significant stenosis. Tortuosity and mild vascular row cysts of the bilateral external iliac arteries. LOWER THORAX: Unremarkable. Lung bases are clear. No cardiomegaly. No significant pericardial effusion. ABDOMEN: LIVER: Unremarkable. Homogeneous. No focal mass. GALLBLADDER AND BILE DUCTS: Unremarkable. No calcified gallstones. No gallbladder distention or wall edema. No intra- or extrahepatic biliary ductal dilation. PANCREAS: There are metallic densities of the upper abdomen, 2 of which are posterior to the pancreas. No focal cystic or solid mass. SPLEEN: Unremarkable. Normal size without focal cystic or solid mass. ADRENALS: Unremarkable. No nodules. KIDNEYS AND URETERS: Unremarkable. Normal renal size and position. No hydronephrosis. STOMACH AND BOWEL: Diverticulosis without evidence of diverticulitis. There is focal hyperdensity within the dependent portion of a diverticulum arising from the posterior hepatic flexure wall on image 81 of series 2 and image 42 of series 601. Focal triangular contrast within the colonic lumen on image 42 of series 601. No stomach or bowel distention. PELVIS: APPENDIX: No evidence of acute appendicitis. BLADDER: Unremarkable. REPRODUCTIVE: Unremarkable as visualized. No mass. ABDOMEN and PELVIS: INTRAPERITONEAL SPACE: Unremarkable. No ascites or other fluid collection. No free air. BONES/JOINTS: Degenerative changes of lumbar spine. No suspicious lytic or blastic abnormality. SOFT TISSUES: Unremarkable. No discrete abdominal or pelvic wall hernia. LYMPH NODES: Unremarkable. No enlarged lymph nodes. CT/CTA Abd/Pelvis W/WO Contrast IMPRESSION: Focal contrast in the dependent portion of the diverticulum and the hepatic flexure suggesting active diverticular bleed. Electronically Signed: Ramírez Cervantes MD (Brooks) at 18:56 EDT Reading Location ID and State: [facility] / [place] , Service support ,
[2022-10-30] MEDS: 0.9% Normal Saline (1000mL) 1,000 ML 250 ML IV ×2 (18:41→23:09)
--- NOTE | 2022-10-30 20:12 | ED.RN ---
[facility] TRANSFER LINE CALLED BACK TO CONFIRM SELFPAY INSTEAD OF INSURANCE. WILL MAKE MORE CALLS REGARDING DRS AND ACCEPTANCE. TO CALL [facility] BACK.
[2022-10-30 21:41] LABS: Hematocrit 40.7 % (40-54); Hemoglobin 13.3 g/dL (13.0-16.5)
[2022-10-30] MEDS: 0.9% Normal Saline (1000mL) 1,000 ML 999 ML IV (21:52)
[2022-10-31] VITALS: BP 91/50; PULSE 76; RESP 20; O2SAT 97
--- NOTE | 2022-10-31 00:03 | ED.RN ---
WITH PHYSICIANS GAVE 4/5 HOUR ETA (4/5AM). SAID DUE TO NO INS CANNOT OUTSOURCE. ACCEPTED AT [facility] H6 BED 6315. N2N [phone].
--- NOTE | 2022-10-31 00:18 | ED.RN ---
report called to Greg Pimentel, karlie nurse Mauricio
[2022-10-31 00:19] VITALS: BP 100/56; PULSE 69; RESP 15; TEMP 36.8; O2SAT 100
[2022-10-31 03:36] VITALS: BP 113/56; PULSE 78; RESP 18; O2SAT 99
[2022-10-31] MEDS: 0.9% Normal Saline (1000mL) 1,000 ML 250 ML IV (04:24)
--- NOTE | 2022-10-31 04:45 | ED.RN ---
CALLED PHYSICIANS, [facility] IS 30 MINUTES AWAY.
== END 2022-10-31 05:47 | disposition short-term general hospital (02) ==
PROVIDERS: Emergency Provider Emergency Medicine; PCP Family Medicine; Visit Provider Emergency Medicine
DX: K62.5 Hemorrhage of anus and rectum (principal); E78.00 Pure hypercholesterolemia, unspecified; I25.10 Atherosclerotic heart disease of native coronary artery without angina pectoris; Z79.82 Long term (current) use of aspirin; Z79.899 Other long term (current) drug therapy; Z79.01 Long term (current) use of anticoagulants; Z86.718 Personal history of other venous thrombosis and embolism; Z95.5 Presence of coronary angioplasty implant and graft
CPT/HCPCS: 74174; 80048; 83605; 85014; 85018; 85025; 85610; 85730; 99285; J7030; Q9967; A4216

== ENCOUNTER → 2022-11-09 | Outpatient (CLI) | payer SELFPAY ==
[2022-11-09 15:36] LABS: Basophil# 0.04 X10^3/uL; Basophil% 0.5 % (0-1); Eosinophil# 0.39 X10^3/uL; Eosinophils% 5.2 % (0-5); Hematocrit 28.4 % (40-54); Lymphocyte % 19.9 % (19-41); Mean Corp Hgb Conc 31.7 g/dL (32-36); Mean Corpuscular Hgb 32.8 pg (27.0-32.0); Mean Corpuscular Volume 103.6 fL (80-94); Mean Platelet Vol. 9.3 fl (6.2-12.0); Monocyte# 0.54 X10^3/uL; Monocyte% 7.2 % (0-10); NRBC Flagged by Analyzer 0 % (0-5); Neutrophil # 5.01 X10^3/uL (2.7-7.7); Neutrophil % 66.4 % (47-70); Platelet Count 197 K/mm3 (150-450); RBC Distribution Width CV 15.8 % (11.6-14.6); RBC Distribution Width SD 57.4 fl (35.1-43.9); Red Blood Count 2.74 M/mm3 (4.6-6.2); White Blood Count 7.5 K/mm3 (4.4-11.0)
== END | disposition home or self-care (01) ==
LOC: MTLAB 13:55
PROVIDERS: PCP Family Medicine; Referring Provider Family Medicine; Visit Provider Family Medicine
DX: D64.9 Anemia, unspecified (principal)
CPT/HCPCS: 36415; 85025

== ENCOUNTER → 2022-11-18 | Outpatient (CLI) | payer SELFPAY ==
[2022-11-18 15:01] LABS: Absolute Lymphocyte Count 1.53 X10^3/uL (0.83-4.51); Absolute Neutrophil Count 4.4 X10^3/uL (2.0-7.7); Basophil# 0.06 X10^3/uL; Basophil% 0.8 % (0-1); Eosinophil# 0.68 X10^3/uL; Eosinophils% 9.4 % (0-5); Hematocrit 33.2 % (40-54); Hemoglobin 10.5 g/dL (13.0-16.5); Lymphocyte # 1.53 X10^3/ul (0.83-4.51); Lymphocyte % 21.1 % (19-41); Mean Corp Hgb Conc 31.6 g/dL (32-36); Mean Corpuscular Hgb 32.4 pg (27.0-32.0); Mean Corpuscular Volume 102.5 fL (80-94); Mean Platelet Vol. 8.9 fl (6.2-12.0); Monocyte# 0.58 X10^3/uL; NRBC Flagged by Analyzer 0 % (0-5); Neutrophil # 4.38 X10^3/uL (2.7-7.7); Neutrophil % 60.3 % (47-70); Platelet Count 196 K/mm3 (150-450); RBC Distribution Width CV 15.6 % (11.6-14.6); RBC Distribution Width SD 57.2 fl (35.1-43.9); Red Blood Count 3.24 M/mm3 (4.6-6.2); White Blood Count 7.3 K/mm3 (4.4-11.0)
== END | disposition home or self-care (01) ==
PROVIDERS: PCP Family Medicine; Referring Provider Family Medicine; Visit Provider Family Medicine
DX: D64.9 Anemia, unspecified (principal)
CPT/HCPCS: 36415; 85025

== ENCOUNTER → 2022-11-19 | Outpatient (CLI) | payer SELFPAY ==
--- NOTE | 2022-11-19 09:46 | ECHOD_ITS ---
Reason For Study: ASHD Procedure This was a 2D Doppler, Color Flow transthoracic echocardiogram. Exam performed in department. Left Ventricle Normal LV size. Mild concentric left ventricular hypertrophy. The left ventricular ejection fraction is 65 %. Diastolic function is indeterminate. Right Ventricle Normal right ventricle. Atria The left and right atria are normal. Mitral Valve Trivial mitral valve insufficiency. Tricuspid Valve Mild tricuspid valve insufficiency. Right ventricular systolic pressure estimated to be 43 mmHg. Aortic Valve Mild diffuse aortic valve calcification. Mild aortic stenosis. Mild (1+) aortic valve insufficiency. Pulmonic Valve The pulmonic valve is not well visualized. Great Vessels Normal sized aortic root. Pericardium/Pleural No pericardial effusion. MMode/2D Measurements & Calculations LVIDd: 4.4 cm IVSd: 1.1 cm LVOT diam: 2.3 cm LVIDs: 2.6 cm LVPWd: 1.5 cm LVOT area: 4.2 cm2 FS: 41.6 % Ao root diam: 3.2 cm LAV(MOD-bp): 67.7 ml LVAd ap4: 28.5 cm2 LAV(MOD-bp) Indexed: 30.8 ml/m2 LVLd ap4: 7.8 cm LAV(MOD-sp2): 80.8 ml EDV(MOD-sp4): 86.1 ml LAV(MOD-sp4): 55.3 ml EDV(sp4-el): 88.3 ml LVAs ap4: 13.4 cm2 LVLs ap4: 6.5 cm ESV(MOD-sp4): 25.4 ml ESV(sp4-el): 23.5 ml EF(MOD-sp4): 70.5 % EF(sp4-el): 73.4 % LVAd ap2: 31.7 cm2 SV(MOD-sp4): 60.7 ml SV(MOD-sp2): 74.6 ml LVLd ap2: 8.0 cm EDV(MOD-sp2): 106.1 ml EDV(sp2-el): 106.8 ml LVAs ap2: 14.8 cm2 LVLs ap2: 6.1 cm ESV(MOD-sp2): 31.5 ml ESV(sp2-el): 30.4 ml EF(MOD-sp2): 70.3 % SV(sp4-el): 64.8 ml LA dimension(2D): 3.7 cm LA A4 area: 20.6 cm2 RA A4 area: 17.2 cm2 TAPSE: 2.9 cm Time Measurements MV dec time: 0.22 sec Doppler Measurements & Calculations MV E max art: 77.2 cm/sec Lat Peak E' Art: 9.0 cm/sec Med Peak E' Art: 6.3 cm/sec MV A max art: 61.1 cm/sec E/E' lat: 8.6 E/E' med: 12.2 MV E/A: 1.3 MV V2 max: 88.2 cm/sec Ao V2 max: 242.2 cm/sec MV max P.1 mmHg MV dec slope: 373.0 cm/sec2 Ao max P.5 mmHg MV V2 mean: 53.2 cm/sec Ao V2 mean: 166.7 cm/sec MV mean P.3 mmHg Ao mean P.8 mmHg MV V2 VTI: 29.7 cm Ao V2 VTI: 51.8 cm AV (velocity ratio): 0.51 MVA(VTI): 3.7 cm2 KARINA(I,D): 2.1 cm2 KARINA(V,D): 2.0 cm2 AI max art: 448.0 cm/sec LV V1 max: 113.5 cm/sec SV(LVOT): 110.8 ml AI max P.3 mmHg LV V1 max P.2 mmHg AI dec slope: 241.5 cm/sec2 LV V1 mean P.2 mmHg AI P1/2t: 543.3 msec LV V1 mean: 84.3 cm/sec LV V1 VTI: 26.6 cm PA V2 max: 145.8 cm/sec TR max art: 287.2 cm/sec PA V2 mean: 92.5 cm/sec TR max P.0 mmHg ECHO/Echo Complete Interpretation Summary Mild concentric left ventricular hypertrophy. The left ventricular ejection fraction is 65 %. Diastolic function is indeterminate. Mild aortic stenosis. Mild (1+) aortic valve insufficiency. Mild tricuspid valve insufficiency. Right ventricular systolic pressure estimated to be 43 mmHg. Ordering Physician: Sade Cortez Referring Physician: Sade Cortez Performed By: Kelsi Hardin RCS
--- NOTE | 2022-11-19 09:46 | CDU_ITS ---
Rt. Velocities/BP Lt. Velocities/BP Prox CCA 125.3/13.9 cm/sec. Prox CCA 116.1/19.5 cm/sec. Mid CCA 101.6/13.9 cm/sec. Mid CCA 120.5/23.9 cm/sec. Dist CCA 93.5/12.3 cm/sec. Dist CCA 118.3/17.3 cm/sec. Prox ICA 144.0/36.4 cm/sec. Prox ICA 103.0/23.9 cm/sec. Mid ICA 146.2/36.4 cm/sec. Mid ICA 94.5/24.7 cm/sec. Dist ICA 106.3/32.7 cm/sec. Dist ICA 105.8/33.1 cm/sec. Rt. ICA/CCA = 1.4. Lt. ICA/CCA = 0.9. Prox ECA 136.3/10.2 cm/sec. Prox ECA 157.8/13.0 cm/sec. Rt. Vert. 64.8/23.2 cm/sec. Lt. Vert. 53.8/10.3 cm/sec. Right Extracranial There is homogeneous, smooth atherosclerotic plaque noted in the right common carotid artery. There is heterogeneous, irregular atherosclerotic plaque noted in the right internal carotid artery. There is intimal thickening but no significant atherosclerotic plaque noted in the right external carotid artery. Antegrade flow is noted in the right vertebral artery. Left Extracranial There is homogeneous, smooth atherosclerotic plaque noted in the left common carotid artery. There is heterogeneous, irregular atherosclerotic plaque noted in the left internal carotid artery. There is intimal thickening but no significant atherosclerotic plaque noted in the left external carotid artery. Antegrade flow is noted in the left vertebral artery. Procedure Carotid Duplex 52955. This is a Carotid Duplex examination using B-mode, color flow and specral Doppler. The exam was diagnostic. Exam performed in department. VL/Carotid Duplex Ultrasound Interpretation Summary Moderate (50-69%) stenosis right extracranial internal carotid. Mild (<50%) stenosis left extracranial internal carotid. Patent and antegrade vertebrals bilaterally. Ordering Physician: Sade Cortez Referring Physician: Sade Cortez Performed By:
== END | disposition home or self-care (01) ==
PROVIDERS: PCP Family Medicine; Referring Provider Internal Medicine Cardiovascular Disease; Visit Provider Internal Medicine Cardiovascular Disease
DX: R42 Dizziness and giddiness (principal); I77.9 Disorder of arteries and arterioles, unspecified; E78.5 Hyperlipidemia, unspecified; I25.10 Atherosclerotic heart disease of native coronary artery without angina pectoris
CPT/HCPCS: 93306; 93880

== ENCOUNTER → 2023-01-10 | Outpatient (CLI) | payer SELFPAY ==
--- NOTE | 2023-01-10 11:38 | STRESSREP ---
Stress Test Report Date: 01/10/2023 Procedure: Pharmacologic stress nuclear imaging study Indications: Coronary artery disease Consent: Per the patient Procedure: The patient underwent pharmacologic (Regadenoson 0.4mg ) evaluation with a peak heart rate of 81 beats per minute (57%predicted maximal heart rate) and a peak blood pressure of 118/78 mmHg. The baseline ECG demonstrated sinus rhythm. The peak pharmacologic ECG demonstrated no ischemic changes. There were no cardiac dysrhythmias pretest, during pharmacologic infusion, or recovery. The patient was injected with 14.5 millicuries of technetium 99m Cardiolite and subsequently rest SPECT Cardiolite nuclear imaging was obtained in the horizontal long, vertical long, and short axis views. The patient underwent pharmacologic (Regadenoson) evaluation. The patient was injected with 44.4 millicuries of technetium 99m Cardiolite and subsequently stress SPECT Cardiolite nuclear imaging was obtained in the horizontal long, vertical long, and short axis views. A gated Cardiolite study at peak stress was obtained. The examination was stopped secondary to completion of protocol. Rest and stress SPECT Cardiolite nuclear imaging status post realignment, normalization, and attenuation correction demonstrate very small apical reversible defect of mild intensity suggestive of mild apical ischemia. There is end systolic thickening and brightening. The gated Cardiolite study demonstrates myocardial thickening and inward wall motion. The reported LVEF is 76%. Impression: 1. Pharmacologic (Regadenoson) evaluation 2. Peak pharmacologic ECG with no ischemic changes. 3. There were no cardiac dysrhythmias pretest, during pharmacologic infusion, or recovery. 5. Mildly reduced perfusion of the apex post pharmacological stress suggestive of mild ischemia. 6. The gated Cardiolite study reports an LVEF of 76%. This note was generated with [employer] software. It may contain incorrect words, spelling, and punctuation that were not noted in checking the note before signing.
== END | disposition home or self-care (01) ==
PROVIDERS: PCP Family Medicine; Referring Provider Physician Assistant Medical; Visit Provider Physician Assistant Medical
DX: R42 Dizziness and giddiness (principal); I77.9 Disorder of arteries and arterioles, unspecified; E78.5 Hyperlipidemia, unspecified; I25.10 Atherosclerotic heart disease of native coronary artery without angina pectoris; Z95.5 Presence of coronary angioplasty implant and graft
CPT/HCPCS: 78452; 93017; A9500; A4216; J2785

== ENCOUNTER → 2023-10-11 | Outpatient (CLI) | payer SELFPAY ==
[2023-10-11 10:53] LABS: AST(SGOT) 15 U/L (15-37); Alanine Aminotransfer ALT/SGPT 26 U/L (16-61); Albumin, Serum 3.8 g/dL (3.2-5.0); Alkaline Phosphatase 61 U/L (45-117); Bilirubin, Direct 0.43 mg/dL (0.00-0.30); Cholesterol 145 mg/dL (200); Globulin 3.7 g/dL (2.2-4.2); High Density Lipoprotein 38 mg/dL; Protein, Total 7.5 g/dL (6.4-8.2); Triglycerides 154 mg/dL; Very Low Density Lipoprotein 31 mg/dL (5-40)
== END | disposition home or self-care (01) ==
LOC: LAB 09:06
PROVIDERS: PCP Family Medicine; Referring Provider Nurse Practitioner Gerontology; Visit Provider Nurse Practitioner Gerontology
DX: E78.00 Pure hypercholesterolemia, unspecified (principal)
CPT/HCPCS: 36415; 80061; 80076

== ENCOUNTER → 2024-02-01 | Outpatient (CLI) | payer SELFPAY ==
[2024-02-01 13:07] LABS: Anion Gap 6 (5-15); BUN 27 mg/dL (7-18); BUN/Creat Ratio 16.1 RATIO (10-20); Calcium,Total 9.1 mg/dL (8.5-10.1); Chloride 110 mmol/L (98-107); Creatinine, Serum 1.68 mg/dL (0.70-1.30); EST Glomerular Filtration Rate 42 mL/min (>60); Est Glom Filt Rate - Afr Amer 51 mL/min (>60); Glucose 101 mg/dL (74-106); Potassium 4.3 mmol/L (3.5-5.1); Sodium Level 138 mmol/L (136-145)
[2024-02-01 14:20] LABS: Hemoglobin A1c 5.3 % (3.8-5.6)
== END | disposition home or self-care (01) ==
PROVIDERS: PCP Family Medicine; Referring Provider Family Medicine; Visit Provider Family Medicine
DX: R73.09 Other abnormal glucose (principal)
CPT/HCPCS: 36415; 80048; 83036

== ENCOUNTER → 2024-03-23 | Outpatient (CLI) | payer SELFPAY ==
[2024-03-23 18:23] LABS: Absolute Lymphocyte Count 1.93 X10^3/uL (0.83-4.51); Absolute Neutrophil Count 3.3 X10^3/uL (2.0-7.7); Basophil# 0.03 X10^3/uL; Basophil% 0.5 % (0-1); Eosinophil# 0.46 X10^3/uL; Eosinophils% 7.1 % (0-5); Erythrocyte Sedimentation Rate < 1 mm/hr (0-20); Hematocrit 51.6 % (40-54); Hemoglobin 16.8 g/dL (13.0-16.5); Lymphocyte # 1.93 X10^3/ul (0.83-4.51); Lymphocyte % 29.8 % (19-41); Mean Corp Hgb Conc 32.6 g/dL (32-36); Mean Corpuscular Hgb 32.1 pg (27.0-32.0); Mean Corpuscular Volume 98.7 fL (80-94); Mean Platelet Vol. 9.4 fl (6.2-12.0); Monocyte# 0.68 X10^3/uL; Monocyte% 10.5 % (0-10); NRBC Flagged by Analyzer 0 % (0-5); Neutrophil # 3.34 X10^3/uL (2.7-7.7); Neutrophil % 51.6 % (47-70); Platelet Count 144 K/mm3 (150-450); RBC Distribution Width CV 13.9 % (11.6-14.6); RBC Distribution Width SD 50.6 fl (35.1-43.9); Red Blood Count 5.23 M/mm3 (4.6-6.2); White Blood Count 6.5 K/mm3 (4.4-11.0)
[2024-03-23 18:32] LABS: CRP < 2.90 mg/L (0.0-3.0); Rheumatoid Factor < 10.0 IU/mL (<15); Uric Acid 6.6 mg/dL (3.5-7.2)
== END | disposition home or self-care (01) ==
PROVIDERS: PCP Family Medicine; Referring Provider Family Medicine; Visit Provider Family Medicine
DX: M19.90 Unspecified osteoarthritis, unspecified site (principal); R73.09 Other abnormal glucose
CPT/HCPCS: 36415; 80048; 83036; 84550; 85025; 85652; 86140; 86431

== ENCOUNTER → 2024-09-28 | Outpatient (CLI) | payer SELFPAY ==
[2024-09-28 09:46] LABS: Hematocrit 49.8 % (40-54); Hemoglobin 16.9 g/dL (13.0-16.5); Immature Granulocytes Count 0.040 X10^3/uL (0.0-0.0); Mean Corp Hgb Conc 33.9 g/dL (32-36); Mean Corpuscular Volume 97.1 fL (80-94); Mean Platelet Vol. 8.8 fl (6.2-12.0); NRBC Flagged by Analyzer 0 % (0-5); Platelet Count 142 K/mm3 (150-450); RBC Distribution Width CV 13.6 % (11.6-14.6); RBC Distribution Width SD 49.1 fl (35.1-43.9); Red Blood Count 5.13 M/mm3 (4.6-6.2); White Blood Count 7.1 K/mm3 (4.4-11.0)
[2024-09-28 11:36] LABS: AST(SGOT) 21 U/L (<=37); Alanine Aminotransfer ALT/SGPT 20 U/L (<=46); Albumin, Serum 4.3 g/dL (3.4-4.8); Alkaline Phosphatase 55 U/L (40-129); Anion Gap 11 (5-15); BUN 35 mg/dL (4-19); BUN/Creat Ratio 19.4 RATIO (10-20); Bilirubin, Direct 0.65 mg/dL (0.00-0.30); Calcium,Total 9.5 mg/dL (7.6-11.0); Carbon Dioxide 21.3 mmol/L (21.0-32.0); Chloride 105 mmol/L (98-108); Globulin 2.4 g/dL (2.2-4.2); Glucose 106 mg/dL (70-99); Potassium 4.7 mmol/L (3.3-5.1)
[2024-09-28 12:23] LABS: Cholesterol 144 mg/dL (<=200); Low Density Lipoprotein Calc. 79 mg/dL; Triglycerides 137 mg/dL; Very Low Density Lipoprotein 27 mg/dL (5-40); cholesterol:hdl ratio screen 3.78
== END | disposition home or self-care (01) ==
PROVIDERS: PCP Family Medicine; Referring Provider Nurse Practitioner Family; Visit Provider Nurse Practitioner Family
DX: E78.00 Pure hypercholesterolemia, unspecified (principal); I65.23 Occlusion and stenosis of bilateral carotid arteries; I10 Essential (primary) hypertension; Z95.5 Presence of coronary angioplasty implant and graft
CPT/HCPCS: 36415; 80048; 80061; 80076; 85025

== ENCOUNTER → 2024-10-03 | Outpatient (CLI) | payer SELFPAY ==
--- NOTE | 2024-10-03 09:46 | CDU_ITS ---
Reason For Study Reason For Study: Right carotid disease Rt. Velocities/BP Lt. Velocities/BP Prox CCA 104.7/17.9 cm/sec. Prox CCA 132.1/18.8 cm/sec. Mid CCA 114.6/18.8 cm/sec. Mid CCA 112.0/20.6 cm/sec. Dist CCA 124.7/15.2 cm/sec. Dist CCA 93.7/15.2 cm/sec. Prox ICA 154.0/18.8 cm/sec. Prox ICA 102.1/20.2 cm/sec. Mid ICA 148.5/29.8 cm/sec. Mid ICA 84.0/19.7 cm/sec. Dist ICA 84.6/18.8 cm/sec. Dist ICA 108.2/29.3 cm/sec. Rt. ICA/CCA = 1.3. Lt. ICA/CCA = 1.0. Prox ECA 163.1/5.0 cm/sec. Prox ECA 126.6/9.7 cm/sec. Rt. Vert. 57.5/17.9 cm/sec. Lt. Vert. 48.5/7.8 cm/sec. Right Extracranial There is homogeneous, smooth atherosclerotic plaque noted in the right common carotid artery. There is heterogeneous, irregular atherosclerotic plaque noted in the right internal carotid artery. There is heterogeneous, irregular atherosclerotic plaque noted in the right external carotid artery. Antegrade flow is noted in the right vertebral artery. Left Extracranial There is homogeneous, smooth atherosclerotic plaque noted in the left common carotid artery. There is heterogeneous, irregular atherosclerotic plaque noted in the left internal carotid artery. There is homogeneous, smooth atherosclerotic plaque noted in the left external carotid artery. Antegrade flow is noted in the left vertebral artery. Procedure Carotid Duplex 44742. This is a Carotid Duplex examination using B-mode, color flow and specral Doppler. Exam performed in department. VL/Carotid Duplex Ultrasound Interpretation Summary Moderate (50-69%) stenosis right extracranial internal carotid. Mild (<50%) stenosis left extracranial internal carotid. Patent and antegrade vertebrals bilaterally. Ordering Physician: Brandon Bennett Referring Physician: Brandon Chavez Performed By: Izzy Robles RVT
== END | disposition home or self-care (01) ==
LOC: CVS 09:45
PROVIDERS: PCP Family Medicine; Referring Provider Nurse Practitioner Family; Visit Provider Nurse Practitioner Family
DX: I65.23 Occlusion and stenosis of bilateral carotid arteries (principal); Z95.5 Presence of coronary angioplasty implant and graft
CPT/HCPCS: 93880